=== PATIENT | female | born 1950 | race Caucasian/White ===

== ENCOUNTER 2020-09-15 11:33 | Emergency (ER) | payer MEDICARE ==
[~2020-09-15] VITALS: Ht 170.2 cm; Wt 97.5 kg
--- NOTE | 2020-09-15 11:50 | Emergency Room Report ---
History of Present Illness General Chief Complaint: Chest Pain Source: Patient Present Illness HPI Patient presents with substernal chest pressure. This began at 130 this morning that woke her up. She has severe GERD that wakes her up sometimes but this is worse pain which she states is similar to her GERD but the GERD usually is transient. She denies any exertional symptoms. It is persisting and worse when she lays down. She took [employer] which did not help. She is taking omeprazole. The patient also did have mild exercise class yesterday. There is no pain during this class. In addition she states she is under tremendous amount of stress at this time. She did not sleep well last night. She takes Wellbutrin as well as 2 SSRIs. Cardiac risk factors: None States that she might be prediabetic. Patient denies exposure to Covid positive contacts. No sore throat, palpitations, nausea, vomiting, diarrhea, dysuria, abdominal pain, shortness of breath, rashes, visual changes, dizziness, headache. Allergies: Coded Allergies: No Known Allergies (Unverified , 09/15/20) COVID-19 Screening Contact w/high risk pt: No Experienced COVID-19 symptoms?: No COVID-19 Testing performed [employer]: Yes COVID-19 Screening: Negative COVID-19 COVID-19 Testing Source: [employer] Patient History Past Medical History: see triage record Social History: Denies: smoking Social History Narrative At home Reviewed Nursing Documentation: PMH: Agreed; PSxH: Agreed Review of Systems All Other Systems: negative except mentioned in HPI Physical Exam Vital Signs Date Time Temp Pulse Resp B/P (MAP) Pulse Ox O2 Delivery O2 Flow Rate FiO2 09/15/20 11:44 99.3 84 15 155/82 (106) 97 Room Air Sp02 EP Interpretation: reviewed, normal General Appearance: well appearing, no apparent distress, GCS 15 Head: normocephalic Eyes: bilateral eye normal inspection, bilateral eye PERRL, bilateral eye EOMI ENT: moist mucus membranes Neck: full range of motion, supple Respiratory: lungs clear, normal breath sounds, other - Mild anterior left- sided chest wall tenderness Cardiovascular #1: regular rate, rhythm Cardiovascular #2: 2+ radial (R) Gastrointestinal: normal inspection, normal bowel sounds, non tender, no mass, non-distended Musculoskeletal: back normal, normal range of motion, no calf tenderness, gait/station normal Neurologic: alert, oriented x3, grossly normal Psychiatric: anxious Skin: no rash, warm/dry Medical Decision Making Diagnostic Impression: Primary Impression: Chest pain Qualified Codes: R07.9 - Chest pain, unspecified Additional Impressions: Chest wall pain GERD (gastroesophageal reflux disease) Qualified Codes: K21.9 - Gastro-esophageal reflux disease without esophagitis ER Course Patient presents with chest pain. My differential includes acute myocardial infarction, GERD, esophageal spasm, esophagitis, angina, pulmonary embolus amongst others. History is atypical however due to the age evaluate for possible cardiac cause. Based on history and physical exam pulmonary embolism extremely unlikely. Patient will be evaluated with EKG, chest x-ray labs. Patient will receive Mylanta and viscous lidocaine and Pepcid. 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 EKG normal sinus rhythm with nonspecific ST-T wave changes. CXR neg. Patient still with discomfort. Tramadol. Repeat troponin. Long discussion. CWT persists. Will give Toradol. Discussed that Toradol might make GERD symptoms worse. Patient's GERD symptoms increased with Toradol. Discussed findings with patient. Discussed treatment plan with patient. Discussed outpatient observation. No medical emergency at this time. Patient stable for outpatient observation and treatment. Laboratory Tests Test 09/15/20 11:50 09/15/20 13:00 White Blood Count 7.4 K/UL (4.8-10.8) Red Blood Count 5.10 M/UL (4.20-5.40) Hemoglobin 14.7 G/DL (12.0-16.0) Hematocrit 45.4 % (37.0-47.0) Mean Corpuscular Volume 89 FL (80-99) Mean Corpuscular Hemoglobin 28.7 PG (27.0-31.0) Mean Corpuscular Hemoglobin Concent 32.3 G/DL (32.0-36.0) Red Cell Distribution Width 13.1 % (11.6-14.8) Platelet Count 249 K/UL (150-450) Mean Platelet Volume 9.1 FL (6.5-10.1) Neutrophils (%) (Auto) 64.2 % (45.0-75.0) Lymphocytes (%) (Auto) 24.9 % (20.0-45.0) Monocytes (%) (Auto) 6.9 % (1.0-10.0) Eosinophils (%) (Auto) 2.8 % (0.0-3.0) Basophils (%) (Auto) 1.2 % (0.0-2.0) Prothrombin Time 10.2 SEC (9.30-11.50) Prothrombin Time INR 0.9 (0.9-1.1) Activated Partial Thromboplast Time 28 SEC (23-33) Sodium Level 142 MMOL/L (136-145) Potassium Level 3.8 MMOL/L (3.5-5.1) Chloride Level 107 MMOL/L (98-107) Carbon Dioxide Level 27 MMOL/L (21-32) Anion Gap 8 mmol/L (5-15) Blood Urea Nitrogen 25 mg/dL (7-18) H Creatinine 1.0 MG/DL (0.55-1.30) Estimated Glomerular Filtration Rate 54.7 mL/min (>60) Glucose Level 93 MG/DL (74-106) Calcium Level 9.7 MG/DL (8.5-10.1) Total Bilirubin 0.6 MG/DL (0.2-1.0) Aspartate Amino Transferase (AST) 15 U/L (15-37) Alanine Aminotransferase (ALT) 16 U/L (12-78) Alkaline Phosphatase 71 U/L (46-116) Total Creatine Kinase 89 U/L (26-308) Troponin I 0.000 ng/mL (0.000-0.056) 0.000 ng/mL (0.000-0.056) Pro-B-Type Natriuretic Peptide 93 pg/mL (0-125) Total Protein 7.2 G/DL (6.4-8.2) Albumin 3.5 G/DL (3.4-5.0) Globulin 3.7 g/dL Albumin/Globulin Ratio 0.9 (1.0-2.7) L EKG Diagnostic Results Rate: normal Rhythm: NSR ST Segments: no acute changes Rhythm Strip Diag. Results EP Interpretation: yes Rhythm: NSR, no PVC's, no ectopy Chest X-Ray Diagnostic Results Chest X-Ray Diagnostic Results : Chest X-Ray Ordered: Yes # of Views/Limited/Complete: 1 View Indication: Chest Pain EP Interpretation: Yes Interpretation: no consolidation, no effusion, no pneumothorax, other - disagree with possible effusion Impression: No acute disease Electronically Signed by: Electronically signed by Chapincito Nance MD Last Vital Signs Date Time Temp Pulse Resp B/P (MAP) Pulse Ox O2 Delivery O2 Flow Rate FiO2 09/15/20 15:29 97.3 69 18 139/78 98 Room Air Status: improved Disposition: HOME, SELF-CARE Condition: Improved Chapincito Nance MD Sep 15, 2020 11:50
[2020-09-15] MEDS ORDERED: Lidocaine 2% Visc 15ml soln ORAL ONE (12:00)
[2020-09-15] MEDS ORDERED: Mylanta II UD 30ml ORAL ONE ×2 (12:00→15:30)
[2020-09-15 12:15] LABS: BASOPHILS % (AUTO) 1.2 % (0.0-2.0); EOSINOPHILS % (AUTO) 2.8 % (0.0-3.0); HEMATOCRIT 45.4 % (37.0-47.0); HEMOGLOBIN 14.7 G/DL (12.0-16.0); LYMPHOCYTES % (AUTO) 24.9 % (20.0-45.0); MEAN CORPUSCULAR VOLUME 89 FL (80-99); MONOCYTES % (AUTO) 6.9 % (1.0-10.0); NEUTROPHILS % (AUTO) 64.2 % (45.0-75.0); PLATELET COUNT 249 K/UL (150-450); RED CELL DISTRIBUTION WIDTH 13.1 % (11.6-14.8); WHITE BLOOD COUNT 7.4 K/UL (4.8-10.8)
--- NOTE | 2020-09-15 12:28 | Diagnostic Imaging Report ---
EXAM: XR Chest, 1 View CLINICAL HISTORY: CP TECHNIQUE: Frontal view of the chest. COMPARISON: Chest radiograph on 06/15/2007 FINDINGS: Hardware: None. Lungs/pleura: Hyperinflation of the lungs could represent COPD changes. Mild bibasilar atelectasis. No focal consolidation. Possible trace left pleural effusion. Heart/mediastinum: Atherosclerotic calcifications of the aorta. No cardiomegaly. Soft tissues: Unremarkable. Bones: No acute fracture. Upper abdomen: Normal. IMPRESSION: Hyperinflation of the lungs could represent COPD changes. Mild bibasilar atelectasis. Possible trace left pleural effusion.
[2020-09-15 12:29] LABS: ANION GAP 8 mmol/L (5-15); BLOOD UREA NITROGEN 25 mg/dL (7-18); CALCIUM 9.7 MG/DL (8.5-10.1); CARBON DIOXIDE 27 MMOL/L (21-32); CHLORIDE 107 MMOL/L (98-107); POTASSIUM 3.8 MMOL/L (3.5-5.1); SODIUM 142 MMOL/L (136-145)
[2020-09-15 12:30] LABS: INR 0.9 (0.9-1.1)
[2020-09-15 12:42] LABS: ALANINE AMINOTRANSFERASE 16 U/L (12-78); ALBUMIN 3.5 G/DL (3.4-5.0); ALBUMIN/GLOBULIN RATIO 0.9 (1.0-2.7); ALKALINE PHOSPHATASE 71 U/L (46-116); ASPARTATE AMINO TRANSFERASE 15 U/L (15-37); BILIRUBIN,TOTAL 0.6 MG/DL (0.2-1.0); CREATINE KINASE 89 U/L (26-308)
[2020-09-15] MEDS ORDERED: traMADol 50mg tab ORAL ONE (13:30)
[2020-09-15 13:48] VITALS: BP 138/89
[2020-09-15] MEDS ORDERED: Ketorolac 30mg Inj IV ONE (14:30)
[2020-09-15] MEDS ORDERED: IBUPROFEN600 M1 ORAL (14:42)
[2020-09-15 15:29] VITALS: BP 139/78
== END 2020-09-15 15:30 | disposition home or self-care (01) ==
LOC: EMR 11:40
DX: R07.89 Other chest pain (principal); K21.9 Gastro-esophageal reflux disease without esophagitis
CPT/HCPCS: 36415; 71045; 80053; 82550; 83880; 84484; 85025; 85610; 85730; 93005; 96374; 96375; 99284; J1885